=== PATIENT | female | born 1945 | race Caucasian/White ===

== ENCOUNTER → 2016-12-20 | Outpatient (REF) ==
[~2016-12-20] MED LIST: BUMEX2 MG PO; CYMBALTA 20MG20 MG PO; DOXYCYCLINE 10100 MG PO; GABAPENTIN300 M1 PO; HYDROCHLOR50 MG PO; NORCO 325 MG-51 TAB PO; PROTONIX 40MG T40 MG PO; XANAX 0.5MG0.5 MG
[2016-12-20 17:31] LABS: ADJUSTED CALCIUM 9.7 mg/dL (8.4-10.2); ALBUMIN 3.9 gm/dL (3.5-5.0); BILIRUBIN,TOTAL 0.8 mg/dL (0.0-1.0); CALCIUM 9.6 mg/dL (8.4-10.2); CREATININE, serum 0.79 mg/dL (0.52-1.25); POTASSIUM 3.8 mmol/L (3.4-5.0); TOTAL PROTEIN 7.5 gm/dL (6.4-8.2)
[2016-12-20 18:01] LABS: THYROID STIMULATING HORMONE 1.92 uIU/mL (0.465-4.680)
== END ==
LOC: ZLAB.WCH 16:58
PROVIDERS: Internal Medicine
DX: Z01.89 Encounter for other specified special examinations (principal)

== ENCOUNTER 2017-10-30 15:08 | Emergency (ER) | payer MEDICARE, MEDICAID ==
[~2017-10-30] VITALS: Ht 167.6 cm; Wt 66.8 kg
[2017-10-30 15:11] VITALS: BP 128/72; PULSE 78; TEMP 97.8
== END 2017-10-30 16:51 | disposition left against medical advice (07) ==
LOC: COL.ER 15:08
DX: M25.561 Pain in right knee (principal); M25.562 Pain in left knee; M54.5 Low back pain; G89.29 Other chronic pain; F17.210 Nicotine dependence, cigarettes, uncomplicated; W00.0XXA Fall on same level due to ice and snow, initial encounter; Y92.009 Unspecified place in unspecified non-institutional (private) residence as the place of occurrence of the external cause

== ENCOUNTER 2018-01-25 17:04 | Emergency (ER) | payer MEDICARE, MEDICAID ==
[~2018-01-25] VITALS: Ht 167.6 cm; Wt 77.3 kg
[2018-01-25] MEDS ORDERED: WELLBUTRIN 75MG75 MG PO (17:17)
[2018-01-25] MEDS ORDERED: SYNTHROID0.137 MG (17:18)
[2018-01-25 17:42] LABS: COLLECTION METHOD CLEAN CATCH
[2018-01-25 17:45] LABS: BASO # 0.1 (0.0-0.2); BASO % 0.8 % (0.0-2.0); EOS # 0.1 (0.0-0.7); GRAN # 3.4 (1.4-6.5); GRAN % 51.3 % (42.2-75.2); HEMATOCRIT 43.9 % (37.0-47.0); HEMOGLOBIN 14.3 g/dl (12.5-16.0); LYMPH # 2.5 (1.2-3.4); LYMPH % 38.8 % (20.0-51.0); MEAN CELL VOLUME 91 fl (80.0-100.0); MEAN CORPUSCULAR HEMOGLOBIN 30 pg (27.0-31.0); MEAN CORPUSCULAR HGB CONC 33 g/dl (33.0-37.0); MEAN PLATELET VOLUME 10.5 fl (7.4-10.4); MONO # 0.4 (0.1-0.6); MONO % 6.6 % (1.7-9.3); PLATELET COUNT 227 K/mm3 (130-400); RED BLOOD COUNT 4.83 M/mm3 (4.10-5.30); REDCELL DISTRIBUTION WIDTH-CV 13.2 % (11.5-14.5)
[2018-01-25 17:48] LABS: PH 6 (5-8); SQUAMOUS EPITHELIAL None Seen /hpf; URINE APPEARANCE Clear; URINE BACTERIA None Seen /hpf; URINE BILIRUBIN Negative (NEGATIVE); URINE BLOOD Negative (NEGATIVE); URINE COLOR Straw; URINE GLUCOSE Negative (NEGATIVE); URINE KETONE Negative (NEGATIVE); URINE LEUKOCYTE ESTERASE Negative (NEGATIVE); URINE NITRATE Negative (NEGATIVE); URINE PROTEIN(semi-quant) Negative (NEGATIVE); URINE RBC None Seen /hpf; URINE UROBILINOGEN Negative (NEGATIVE)
[2018-01-25 17:57] LABS: TRICYCLIC ANTIDEPRESS URINE NEGATIVE
[2018-01-25 18:04] LABS: ALANINE AMINOTRANSFERASE 41 U/L (9-52); ALBUMIN 3.9 gm/dL (3.5-5.0); ALCOHOL(ethanol),MEDICAL 133 mg/dL; ALKALINE PHOSPHATASE 99 U/L (50-136); ANION GAP 16 mmol/L (7-16); AST,SGOT 25 U/L (15-37); BILIRUBIN,TOTAL 0.2 mg/dL (0.0-1.0); BLOOD UREA NITROGEN 13 mg/dL (7-17); CALCIUM 9.2 mg/dL (8.4-10.2); CARBON DIOXIDE 29 mmol/L (22-30); CHLORIDE 103 mmol/L (98-107); CREATININE, serum 0.64 mg/dL (0.52-1.25); GLUCOSE 97 mg/dL (74-106); POTASSIUM 4.1 mmol/L (3.4-5.0); SODIUM 147 mmol/L (137-145); TOTAL PROTEIN 7.4 gm/dL (6.4-8.2)
[2018-01-25 18:10] LABS: ACETAMINOPHEN < 10 ug/mL (10-30); SALICYLATE < 1.0 mg/dL
[2018-01-26 06:18] VITALS: TEMP 97.5
[2018-01-26] MEDS ORDERED: PRILOSEC 20MG20 MG PO (11:29)
[2018-01-26] MEDS ORDERED: COZAAR100 MG PO (11:29)
[2018-01-26] MEDS ORDERED: INDOCIN50 MG PO (11:30)
[2018-01-26] MEDS ORDERED: XANAX2 MG PO (11:30)
[2018-01-26] MEDS ORDERED: XYZAL5 MG PO (11:31)
[2018-01-26] MEDS ORDERED: FLONASE NASAL S16 GM NS (11:32)
[2018-01-26 16:16] VITALS: BP 140/95; PULSE 98
== END 2018-01-26 16:16 | disposition home or self-care (01) ==
LOC: COL.ER 17:04
PROVIDERS: Emergency Medicine
DX: T43.292A Poisoning by other antidepressants, intentional self-harm, initial encounter (principal); F32.9 Major depressive disorder, single episode, unspecified; I10 Essential (primary) hypertension; E66.9 Obesity, unspecified; E03.9 Hypothyroidism, unspecified
CPT/HCPCS: J2060

== ENCOUNTER 2018-11-06 13:52 | Emergency (ER) | payer MEDICARE, MEDICAID ==
[~2018-11-06] VITALS: Ht 167.6 cm; Wt 73.6 kg
[~2018-11-06 13:52] MED LIST changes: +COZAAR100 MG PO; +FLONASE NASAL S16 GM NS; +INDOCIN50 MG PO; +PRILOSEC 20MG20 MG PO; +SYNTHROID0.137 MG; +WELLBUTRIN 75MG75 MG PO; +XANAX2 MG PO; +XYZAL5 MG PO
[2018-11-06 13:59] VITALS: TEMP 97.7
[2018-11-06] MEDS ORDERED: CYMBALTA 20MG20 MG PO (14:45)
[2018-11-06] MEDS ORDERED: BENADRYL25 M2 PO (14:46)
[2018-11-06] MEDS ORDERED: ZITHROMAX Z PA250 MG PO (15:11)
[2018-11-06 15:23] VITALS: BP 120/69; PULSE 76
== END 2018-11-06 15:17 | disposition home or self-care (01) ==
LOC: COL.ER 13:52
DX: J20.9 Acute bronchitis, unspecified (principal); I10 Essential (primary) hypertension; Z87.891 Personal history of nicotine dependence; Z79.51 Long term (current) use of inhaled steroids

== ENCOUNTER → 2018-11-14 | Outpatient (REF) ==
[~2018-11-14] MED LIST changes: +BENADRYL25 M2 PO; +ZITHROMAX Z PA250 MG PO
== END ==
LOC: ZLAB.WCH 18:43
DX: Z01.89 Encounter for other specified special examinations (principal)

== ENCOUNTER 2018-11-23 16:50 | Emergency (ER) | payer MEDICARE, MEDICAID ==
[~2018-11-23] VITALS: Ht 167.6 cm; Wt 76.8 kg
[2018-11-23 16:55] VITALS: TEMP 97.2
[2018-11-23] MEDS ORDERED: LEVOXYL0.05 MG PO (17:21)
[2018-11-23 17:46] LABS: BASO % 0.7 % (0.0-2.0); EOS # 0.1 (0.0-0.7); EOS % 2.5 % (0-4.0); GRAN # 3.1 (1.4-6.5); GRAN % 55.4 % (42.2-75.2); HEMATOCRIT 38.2 % (37.0-47.0); HEMOGLOBIN 12.6 g/dl (12.5-16.0); LYMPH # 1.7 (1.2-3.4); LYMPH % 29.9 % (20.0-51.0); MEAN CELL VOLUME 92 fl (80.0-100.0); MEAN CORPUSCULAR HEMOGLOBIN 30 pg (27.0-31.0); MEAN CORPUSCULAR HGB CONC 33 g/dl (33.0-37.0); MEAN PLATELET VOLUME 11.5 fl (7.4-10.4); MONO # 0.6 (0.1-0.6); MONO % 11.3 % (1.7-9.3); PLATELET COUNT 220 K/mm3 (130-400); RED BLOOD COUNT 4.15 M/mm3 (4.10-5.30); REDCELL DISTRIBUTION WIDTH-CV 13.1 % (11.5-14.5)
[2018-11-23 17:47] LABS: ALBUMIN 3.6 gm/dL (3.5-5.0); BILIRUBIN,TOTAL 0.3 mg/dL (0.0-1.0); CALCIUM 8.9 mg/dL (8.4-10.2); CREATININE, serum 0.62 mg/dL (0.52-1.25); POTASSIUM 3.8 mmol/L (3.4-5.0); TOTAL PROTEIN 6.6 gm/dL (6.4-8.2)
[2018-11-23 18:43] VITALS: BP 140/93; PULSE 80
== END 2018-11-23 18:43 | disposition home or self-care (01) ==
LOC: COL.ER 16:50
PROVIDERS: Emergency Medicine
DX: R51 Headache (principal); F07.81 Postconcussional syndrome; I10 Essential (primary) hypertension

== ENCOUNTER 2019-01-05 15:36 | Emergency (ER) | payer MEDICARE ==
[~2019-01-05] VITALS: Ht 167.6 cm; Wt 96.9 kg
[~2019-01-05 15:36] MED LIST changes: +LEVOXYL0.05 MG PO
[2019-01-05 15:41] VITALS: TEMP 98.2
[2019-01-05 16:16] LABS: BASO % 0.6 % (0.0-2.0); EOS # 0.3 (0.0-0.7); GRAN # 3.2 (1.4-6.5); GRAN % 50.6 % (42.2-75.2); HEMOGLOBIN 14.8 g/dl (12.5-16.0); LYMPH % 32.5 % (20.0-51.0); MEAN CELL VOLUME 89 fl (80.0-100.0); MEAN CORPUSCULAR HEMOGLOBIN 30 pg (27.0-31.0); MEAN CORPUSCULAR HGB CONC 34 g/dl (33.0-37.0); MEAN PLATELET VOLUME 10.5 fl (7.4-10.4); MONO # 0.7 (0.1-0.6); MONO % 11.8 % (1.7-9.3); PLATELET COUNT 218 K/mm3 (130-400); RED BLOOD COUNT 4.93 M/mm3 (4.10-5.30); REDCELL DISTRIBUTION WIDTH-CV 13.2 % (11.5-14.5)
[2019-01-05 16:28] LABS: ALANINE AMINOTRANSFERASE 23 U/L (9-52); ALBUMIN 4.1 gm/dL (3.5-5.0); ALKALINE PHOSPHATASE 98 U/L (50-136); ANION GAP 8 mmol/L (7-16); AST,SGOT 32 U/L (15-37); BILIRUBIN,TOTAL 0.4 mg/dL (0.0-1.0); BLOOD UREA NITROGEN 15 mg/dL (7-17); CALCIUM 9.8 mg/dL (8.4-10.2); CARBON DIOXIDE 28 mmol/L (22-30); CHLORIDE 103 mmol/L (98-107); CREATININE, serum 0.73 (0.52-1.25); GLUCOSE 98 mg/dL (74-106); POTASSIUM 3.9 mmol/L (3.4-5.0); SODIUM 140 mmol/L (137-145); TOTAL PROTEIN 7.8 gm/dL (6.4-8.2)
[2019-01-05 16:42] LABS: TROPONIN-I < 0.012 ng/mL (0.000-0.035)
[2019-01-05] MEDS ORDERED: ALLEGRA-D 24HR1 T24 PO (16:42)
[2019-01-05] MEDS ORDERED: PROAIR HFA0.09 MG/AC IH (16:42)
[2019-01-05 16:50] VITALS: BP 156/88; PULSE 86
== END 2019-01-05 16:50 | disposition home or self-care (01) ==
LOC: COL.ER 15:36
PROVIDERS: Emergency Medicine
DX: J45.909 Unspecified asthma, uncomplicated (principal); I10 Essential (primary) hypertension; E03.9 Hypothyroidism, unspecified; F32.9 Major depressive disorder, single episode, unspecified; F17.210 Nicotine dependence, cigarettes, uncomplicated

== ENCOUNTER 2019-02-19 10:45 | Emergency (ER) | payer MEDICARE ==
[~2019-02-19] VITALS: Ht 167.6 cm; Wt 73.2 kg
[~2019-02-19 10:45] MED LIST changes: +ALLEGRA-D 24HR1 T24 PO; +PROAIR HFA0.09 MG/AC IH
[2019-02-19] MEDS ORDERED: ASPIRIN 81M81 MG/TA2 PO (11:10)
[2019-02-19] MEDS ORDERED: TYLENOL 500MG500 MG PO (11:11)
[2019-02-19] MEDS ORDERED: DESYREL 50MG50 MG PO (11:15)
[2019-02-19] MEDS ORDERED: NORCO 325 MG-51 TAB PO (11:15)
[2019-02-19 11:16] LABS: BASO % 0.4 % (0.0-2.0); EOS # 0.1 (0.0-0.7); EOS % 1.3 % (0-4.0); GRAN # 5.5 (1.4-6.5); HEMATOCRIT 39.4 % (37.0-47.0); LYMPH # 1.2 (1.2-3.4); LYMPH % 15.4 % (20.0-51.0); MEAN CELL VOLUME 91 fl (80.0-100.0); MEAN CORPUSCULAR HEMOGLOBIN 30 pg (27.0-31.0); MEAN CORPUSCULAR HGB CONC 33 g/dl (33.0-37.0); MEAN PLATELET VOLUME 10.5 fl (7.4-10.4); MONO # 0.7 (0.1-0.6); MONO % 9.5 % (1.7-9.3); PLATELET COUNT 187 K/mm3 (130-400); RED BLOOD COUNT 4.32 M/mm3 (4.10-5.30); REDCELL DISTRIBUTION WIDTH-CV 12.9 % (11.5-14.5)
[2019-02-19 11:31] LABS: ALBUMIN 3.5 gm/dL (3.5-5.0); BILIRUBIN,TOTAL 0.3 mg/dL (0.0-1.0); C-REACTIVE PROTEIN 3.5 mg/dL (0.0-0.9); CREATININE, serum 0.6 (0.52-1.25); POTASSIUM 3.8 mmol/L (3.4-5.0); TOTAL PROTEIN 6.7 gm/dL (6.4-8.2)
[2019-02-19 12:28] VITALS: BP 133/90; PULSE 86; TEMP 99.8
== END 2019-02-19 12:30 | disposition home or self-care (01) ==
LOC: COL.ER 10:45
PROVIDERS: Family Medicine
DX: J40 Bronchitis, not specified as acute or chronic (principal); R42 Dizziness and giddiness; I10 Essential (primary) hypertension
CPT/HCPCS: J1100; J2405

== ENCOUNTER 2020-06-24 13:12 | Emergency (ER) | payer MEDICARE ==
[~2020-06-24] VITALS: Ht 167.6 cm; Wt 85.0 kg
[~2020-06-24 13:12] MED LIST changes: +ASPIRIN 81M81 MG/TA2 PO; +DESYREL 50MG50 MG PO; +TYLENOL 500MG500 MG PO
[2020-06-24 13:24] VITALS: TEMP 97.7
[2020-06-24 15:50] LABS: BASO % 0.6 % (0.0-2.0); EOS # 0.2 (0.0-0.7); EOS % 2.1 % (0-4.0); GRAN # 4.3 (1.4-6.5); GRAN % 59.4 % (42.2-75.2); HEMATOCRIT 39.5 % (37.0-47.0); HEMOGLOBIN 13.2 g/dl (12.5-16.0); LYMPH # 1.9 (1.2-3.4); MEAN CELL VOLUME 92 fl (80.0-100.0); MEAN CORPUSCULAR HEMOGLOBIN 31 pg (27.0-31.0); MEAN CORPUSCULAR HGB CONC 33 g/dl (33.0-37.0); MEAN PLATELET VOLUME 11.4 fl (7.4-10.4); MONO # 0.8 (0.1-0.6); MONO % 10.6 % (1.7-9.3); PLATELET COUNT 235 K/mm3 (130-400); RED BLOOD COUNT 4.31 M/mm3 (4.10-5.30)
[2020-06-24 16:03] LABS: ALANINE AMINOTRANSFERASE 17 U/L (4-34); ALKALINE PHOSPHATASE 59 U/L (50-136); ANION GAP 7 mmol/L (7-16); AST,SGOT 19 U/L (15-37); BILIRUBIN,TOTAL 0.3 mg/dL (0.0-1.0); BLOOD UREA NITROGEN 17 mg/dL (7-17); CALCIUM 9.3 mg/dL (8.4-10.2); CARBON DIOXIDE 27 mmol/L (22-30); CHLORIDE 106 mmol/L (98-107); CREATININE, serum 0.71 (0.52-1.25); GLUCOSE 101 mg/dL (74-106); POTASSIUM 3.9 mmol/L (3.4-5.0); SODIUM 139 mmol/L (137-145); TOTAL PROTEIN 6.8 gm/dL (6.4-8.2)
[2020-06-24 16:16] LABS: TROPONIN-I < 0.012 ng/mL (0.000-0.035)
[2020-06-24] MEDS ORDERED: ZITHROMAX 250M250 MG PO (16:25)
[2020-06-24] MEDS ORDERED: DECADRON6 MG PO (16:25)
[2020-06-24] MEDS ORDERED: ZOFRAN ODT4 MG PO (16:25)
[2020-06-24 17:00] VITALS: BP 135/79; PULSE 69
== END 2020-06-24 17:05 | disposition home or self-care (01) ==
LOC: COL.ER 13:12
PROVIDERS: Emergency Medicine
DX: B34.9 Viral infection, unspecified (principal); Z20.828 Contact with and (suspected) exposure to other viral communicable diseases; Z79.82 Long term (current) use of aspirin
CPT/HCPCS: J8540